=== PATIENT | female | born 1935 | race Caucasian/White ===

== ENCOUNTER → 2016-06-08 | Outpatient (CLI) | payer OTHER ==
[2016-06-08 12:17] LABS: BASO % 0.4 %; BASO ABS # 0.03 K/uL (0-0.2); COMPLETE YES; HEMATOCRIT 40.8 % (37-47); IG% 0.1 %; LYMPH % 30.2 %; LYMPH ABS # 2.13 K/uL (1.2-3.4); MEAN CELL VOLUME 92.7 fL (80-100); MEAN CORPUSCULAR HEMOGLOBIN 30.5 pg (25-34); MEAN CORPUSCULAR HGB CONC 32.8 g/dl (32-36); MEAN PLATELET VOLUME 10.8 fL (7.4-10.4); MONO % 9.6 %; NEUT % 55.7 %; PLATELET COUNT 200 K/uL (130-400); WHITE BLOOD COUNT 7.06 K/uL (4.8-10.8)
[2016-06-08 13:17] LABS: BLOOD UREA NITROGEN 18 mg/dl (7-18); BUN/CREATININE RATIO 18.8 (10-20); CARBON DIOXIDE 29 mmol/L (21-32); CHLORIDE 107 mmol/L (98-107); CREATININE 0.96 mg/dl (0.60-1.20); GLUCOSE 110 mg/dl (70-99); POTASSIUM 3.8 mmol/L (3.5-5.1); SODIUM 144 mmol/L (136-145)
[2016-06-08 13:38] LABS: ALB/GLOB RATIO 1.2 (0.9-2); ALKALINE PHOSPHATASE 76 U/L (45-117); ALT/SGPT 25 U/L (12-78); AST/SGOT 25 U/L (15-37)
[2016-06-08 13:55] LABS: CALCIUM 10.1 mg/dl (8.5-10.1)
== END ==
LOC: C.LABPVFM 10:15
PROVIDERS: ATTEND Family Medicine
DX: I10 Essential (primary) hypertension (principal); K51.90 Ulcerative colitis, unspecified, without complications

== ENCOUNTER → 2016-09-27 | Outpatient (CLI) | payer OTHER ==
--- NOTE | 2016-09-27 09:44 | DIAGNOSTIC IMAGING REPORT ---
RIGHT WRIST MIN 3 VIEWS ROUTINE CLINICAL HISTORY: Right wrist pain. Trauma. COMPARISON: None. DISCUSSION: The bones are mildly osteopenic. No acute fractures are visualized. There are no subluxations. There are mild degenerative changes. IMPRESSION: Osteopenia and mild degenerative change. No acute fractures. Electronically signed by: Jaden Loja M.D. 09/27/2016 9:42 AM Dictated Date/Time: 09/27/2016 9:41 AM
== END | disposition home or self-care (01) ==
LOC: C.RADPV 09:26
PROVIDERS: ATTEND Family Medicine
DX: M77.10 Lateral epicondylitis, unspecified elbow (principal); M77.9 Enthesopathy, unspecified; S63.509A Unspecified sprain of unspecified wrist, initial encounter; X58.XXXA Exposure to other specified factors, initial encounter; M85.88 Other specified disorders of bone density and structure, other site

== ENCOUNTER → 2017-01-31 | Outpatient (CLI) | payer OTHER ==
[2017-01-31 13:08] LABS: ALT/SGPT 23 U/L (12-78); BLOOD UREA NITROGEN 15 mg/dl (7-18); BUN/CREATININE RATIO 19.1 (10-20); CALCIUM 9.6 mg/dl (8.5-10.1); CARBON DIOXIDE 30 mmol/L (21-32); CHLORIDE 105 mmol/L (98-107); CREATININE 0.76 mg/dl (0.60-1.20); GLUCOSE 105 mg/dl (70-99); POTASSIUM 3.9 mmol/L (3.5-5.1); SODIUM 141 mmol/L (136-145)
[2017-01-31 13:11] LABS: ALB/GLOB RATIO 1.1 (0.9-2); ALKALINE PHOSPHATASE 84 U/L (45-117); AST/SGOT 24 U/L (15-37)
[2017-01-31 13:37] LABS: ESTIMATED AVERAGE GLUCOSE 120 mg/dl; HA1C FLAG Normal (Normal)
== END | disposition home or self-care (01) ==
LOC: C.LABPVFM 09:50
PROVIDERS: ATTEND Family Medicine
DX: K51.90 Ulcerative colitis, unspecified, without complications (principal)

== ENCOUNTER → 2017-02-05 | Outpatient (CLI) | payer OTHER ==
[2017-02-05 18:32] LABS: HEMATOCRIT 44.1 % (37-47); MEAN CELL VOLUME 93.2 fL (80-100); MEAN CORPUSCULAR HGB CONC 32.2 g/dl (32-36); MEAN PLATELET VOLUME 10.9 fL (7.4-10.4); PLATELET COUNT 219 K/uL (130-400); RED BLOOD COUNT 4.73 M/uL (4.2-5.4); WHITE BLOOD COUNT 9.43 K/uL (4.8-10.8)
== END | disposition home or self-care (01) ==
LOC: C.LABPVFM 10:13
PROVIDERS: ATTEND Internal Medicine Gastroenterology
DX: K51.90 Ulcerative colitis, unspecified, without complications (principal); R49.0 Dysphonia

== ENCOUNTER → 2017-10-12 | Outpatient (CLI) | payer OTHER | END | disposition home or self-care (01) | LOC: C.LABPVFM 15:38 | PROVIDERS: ATTEND Family Medicine | DX: R53.83 Other fatigue (principal); M25.531 Pain in right wrist; M25.532 Pain in left wrist ==

== ENCOUNTER 2023-07-04 15:26 | Inpatient (IN) ==
--- NOTE | 2023-07-04 16:35 | Emergency Department Note ---
Impression & Plan Bilateral edema of lower extremity, Fatigue, Atrial fibrillation with RVR, Elevated brain natriuretic peptide (BNP) level ED Provider Note ED Provider Note NAME: TAMIKA ROLON AGE:87 SEX: Female : 1935 ARRIVES VIA: Private vehicle INFORMANT: Patient ED PROVIDER(s): Angie Lobo DO CHIEF COMPLAINT: Lower extremity edema HPI: This is an 87-year-old female who presents emergency department due to concern for increased lower extremity edema. Patient states she just noticed it today. She states for several days she had had a small amount of edema in her feet and ankles and thought it was due to eating too much ham over the weekend. She states today she realized it was extending up above her ankles and to her lower legs. She denies any trauma or injury to the lower legs. She denies any recent change in activity. She denies any history of chronic lower extremity edema. Patient states she does have atrial fibrillation and does see Dr. Hawkins of cardiology. She states a new medication was recently added and she has had some increased fatigue since that was started. She denies any recent fevers, chills, or URI symptoms. She denies any change in her urine or difficulty urinating. Patient states she does have a history of ulcerative colitis and does have frequent bouts of diarrhea and lower abdominal cramping. She states she does intermittently notice blood with her bowel movements. PAST MEDICAL HISTORY:See Below PAST SURGICAL HISTORY:See Below FAMILY HISTORY:See Below SOCIAL HISTORY:See Below HOME MEDICATIONS:See Below ALLERGIES:See Below VITALS:See Below PHYSICAL EXAMINATION: GENERAL: alert, well appearing, well nourished, no distress, non-toxic EYE EXAM: normal conjunctiva, PERRL and EOM's grossly intact OROPHARYNX: no exudate, no erythema, lips, buccal mucosa, and tongue normal and mucous membranes are moist NECK: supple, no nuchal rigidity, no adenopathy, non-tender LUNGS: Clear to auscultation. Normal chest wall mechanics, no w/r/r HEART: no murmurs, S1 normal and S2 normal ABDOMEN: abdomen soft, non-tender, normo-active bowel sounds, no masses, no rebound or guarding. BACK: Back is symmetrical on inspection and there is no deformity, no midline tenderness, no CVA tenderness. SKIN: no rashes, petechiae, orbruising UPPER EXTREMITIES: upper extremities are grossly normal. FROM, nml pulses b/l. LOWER EXTREMITIES: 1-2+ b/l pitting edema worse on left than right, mild erythema noted to the distal left lower extremity anteriorly, FROM, nml pulses b/l. NEURO EXAM: Normal sensorium, cranial nerves II-XII grossly intact, normal speech, no facial droop,nogross weakness of arms, no gross weakness of legs. Gross sensation intact. No ataxia. Vital Signs: reviewed and remarkable Differential Diagnosis: pneumonia, bronchitis, COPD/Asthma exacerbation, pneumothorax, pulmonary embolism, congestive heart failure, acute coronary syndrome, as well as others were considered MEDICAL DECISION MAKING: This is an 87-year-old female who presents emerged from due to concern for increased lower extremity edema. Patient also reports recent increased fatigue and occasional dyspnea on exertion. Patient was afebrile and vital signs stable, no hypoxia noted. She was noted to have atrial fibrillation with RVR although does have a history of A-fib. She states she cannot tell when she has it though. Patient does see cardiology and is anticoagulated. Labs drawn and sent, IV established, EKG and chest ray performed bedside interpreted by me and patient monitored on telemetry. Patient noted to have mild pulmonary edema additionally. BNP added and was also found to be elevated. At this time I suspect her poorly controlled rate could be contributing to increased cardiac stress leading to evolving CHF. Patient started on diltiazem drip as she already takes diltiazem orally daily. Patient did have improved rate control. Patient given 1 dose of furosemide despite previously reported furosemide on allergy list. Patient cannot recall what her reaction was. Listed reaction on her system states headache. I feel this is more likely an adverse reaction. Case discussed with hospitalist team for additional evaluation and management. Consultation(s): 1809: Discussed with Dr. Ramirez, [place] hospitalist, for additional evaluation and mgmt. ER Treatment Provided: See below Diagnostics Interpreted By Me: -ECG: Atrial fibrillation at 122, normal axis, normal intervals, no acute ST/T wave change -Cardiac Monitoring: An order was placed for continuous cardiac monitoring. The monitor shows a rate of 122 with atrial fibrillation rhythm. -Laboratory studies: As stated above and show below. -Imaging studies: Chest x-ray: No mediastinal widening, no cardiomegaly, mild bilateral pulmonary edema, no pleural effusion, no focal consolidation Triage Nursing Note Reviewed Prior/Outside Records Reviewed -cardiology visit from March 2023 reviewed Critical Care: Critical care of 39 min performed to assess and manage high likelihood of life- threatening dysrhythmia, involving labs and imaging performed with assessment to evaluate dysrhythmia diagnosis with frequent reassessment. This time includes bedside time, treatment discussions with patient/family/consultants, documentation time and excludes procedure time. Past Med/Surg History Medical History History of trigger finger Trigger index finger of left hand Sinusitis, acute maxillary History of tinea corporis Eosinophilic lung History of Rosenthal's palsy Degenerative disc disease Osteoarthritis Stress incontinence Borderline diabetes Macular degeneration Restless leg syndrome Peripheral neuropathy Migraine Thrombosis Hyperlipidemia Ulcerative colitis Asthma Surgical History History of dilatation and curettage History of open reduction and internal fixation (ORIF) procedure History of colonoscopy History of tooth extraction History of tonsillectomy History of adenoidectomy Status post nasal endoscopy with nasal polypectomy History of left knee surgery History of knee replacement History of cochlear implant History of cataract surgery Family History Grandmother (Paternal) Family hx colonic polyps Stroke Aunt Stroke Mother Congestive heart failure Leukemia Daughter FH: malignant neoplasm of thyroid Denies family history of Ovarian cancer Prostate cancer Myocardial infarction Breast cancer Colorectal cancer Social History Smoking Status: Never smoker Second Hand Exposure: No; Do You Dip or Chew Tobacco: No; Hx Alcohol Use: No Hx Substance Use: No Preferred Language: Upper Sorbian Communication Ability: Effective Communication Ability Comment: [facility] Jboss Developer Required: No Beliefs That Will Affect Care: None marital status: Current Living Situation: Alone Current Living Situation Comment: daughter to help post op Feels Safe at Home: Yes Dental Care, Regularly: Yes Assistive Devices: Cane and Walker Allergies Allergies Allergy/AdvReac Type Severity Reaction Status Date / Time NSAIDS (Non-Steroidal Allergy Severe "TOLD NOT Verified 07/04/23 14:00 Anti-Inflamma TO TAKE" ? R/T ABNORMAL WBC IN 1990'S sulfasalazine Allergy Severe WBC Verified 07/04/23 14:00 [From Azulfidine] ABNORMALITY albuterol Allergy Intermediate DYSPNEA Verified 07/04/23 14:00 aspirin Allergy Intermediate "TOLD NOT Verified 07/04/23 14:00 TO TAKE" ? R/T ABNORMAL WBC IN bacitracin Allergy Intermediate RED AND Verified 07/04/23 14:00 [From Neosporin INFLAMMATION ([id number])] AT SITE ciclesonide [From Omnaris] Allergy Intermediate MUSCLE Verified 07/04/23 14:00 CRAMPS egg Allergy Intermediate HIVES IF Verified 07/04/23 14:00 EAT TOO MANY fish derived Allergy Intermediate SNEEZING, Verified 07/04/23 14:00 RUNNING NOSE, VOICE LOSS flunisolide [From Aerobid] Allergy Intermediate COUGH/SOB Verified 07/04/23 14:00 hydrochlorothiazide Allergy Intermediate MUSCLE Verified 07/04/23 14:00 [From Maxzide] CRAMPS Iodinated Contrast Media Allergy Intermediate Dizziness Verified 07/04/23 14:00 [Iodinated Contrast- Oral and IV Dye] iodine Allergy Intermediate Wheezing Verified 07/04/23 14:00 ipratropium Allergy Intermediate COUGH, Verified 07/04/23 14:00 "TIGHTNESS" mesalamine Allergy Intermediate HIVES Verified 07/04/23 14:00 neomycin Allergy Intermediate RED AND Verified 07/04/23 14:00 [From Neosporin INFLAMMATION ([id number])] AT SITE Penicillins Allergy Intermediate Hives Verified 07/04/23 14:00 pirbuterol Allergy Intermediate SOB Verified 07/04/23 14:00 [From Maxair Autohaler] polymyxin B Allergy Intermediate RED AND Verified 07/04/23 14:00 [From Neosporin INFLAMMATION ([id number])] AT SITE povidone-iodine Allergy Intermediate Wheezing Verified 07/04/23 14:00 [From Betadine] prednisone Allergy Intermediate MUSCLE Verified 07/04/23 14:00 CRAMPS senna Allergy Intermediate "X-PREP" Verified 07/04/23 14:00 WHEEZING, VOMITING triamcinolone [From Azmacort] Allergy Intermediate SOB Verified 07/04/23 14:00 triamterene [From Maxzide] Allergy Intermediate MUSCLE Verified 07/04/23 14:00 CRAMPS turkey Allergy Intermediate DYSPEPSIA Verified 07/04/23 14:00 zileuton [From Zyflo] Allergy Intermediate INCREASED Verified 07/04/23 14:00 PULSE codeine Allergy Mild RASH Verified 07/04/23 14:00 furosemide [From Lasix] Allergy Mild HEADACHE Verified 07/04/23 14:00 glucosamine Allergy Mild Rash Verified 07/04/23 14:00 hydrocodone Allergy Mild RASH Verified 07/04/23 14:00 oxtriphylline Allergy Mild SOB, Verified 07/04/23 14:00 VOMITING theophylline Allergy Mild SOB, Verified 07/04/23 14:00 VOMITING vitamin E (d-alpha Allergy Mild Rash Verified 07/04/23 14:00 tocopherol) Xanthines Allergy Mild SOB, Verified 07/04/23 14:00 Vomiting soap [From Betadine] Allergy Unknown Wheezing Verified 07/04/23 14:00 soybean AdvReac Intermediate "MOUTH Verified 07/04/23 14:00 ISSUES" loperamide AdvReac Mild Vomiting Verified 07/04/23 14:00 milk AdvReac Mild DIARRHEA,VO Verified 07/04/23 14:00 MITING perfume AdvReac Mild WHEEZY Verified 07/04/23 14:00 tomato AdvReac Mild DIARRHEA Verified 07/04/23 14:00 pseudoephedrine AdvReac Unknown TACHYCARDIA Verified 07/04/23 14:00 ,VOMITING salmeterol AdvReac Unknown DECREASED Verified 07/04/23 14:00 "LUNG POWER" zafirlukast AdvReac Unknown SLUGGISHNESS, Verified 07/04/23 14:00 EXTREME LOSS OF APPETITE salicylates AdvReac CAUSED Verified 07/04/23 14:00 POLYPS METALS Allergy Mild Rash Uncoded 07/04/23 14:00 BABY DAVE POWDER AdvReac Mild Rash Uncoded 07/04/23 14:00 Home Meds Home Medications Medication Instructions Recorded Confirmed balsalazide 750 mg capsule 2,250 mg PO TID 07/31/18 07/04/23 calcium carbonate 600 mg-vitamin 1 cap PO BID 07/31/18 07/04/23 D3 5 mcg (200 unit) capsule (Calcium 600 + D(3)) cetirizine 10 mg capsule (Zyrtec) 10 mg PO HS 07/31/18 07/04/23 chlorpheniramine maleate 4 mg 4 mg PO Q6H PRN Allergy Symptoms 07/31/18 07/04/23 tablet cholecalciferol (vitamin D3) 50 2,000 unit PO BID 07/31/18 07/04/23 mcg (2,000 unit) capsule (Vitamin D3) clindamycin HCl 300 mg capsule 600 mg PO UD PRN BEFORE DENTAL 07/31/18 07/04/23 VISITS flaxseed oil 1,000 mg capsule 100 mg PO BID 07/31/18 07/04/23 ketoconazole 2 % topical cream 1 applic topical DAILY PRN 07/31/18 07/04/23 NEEDED RING WORM lutein 20 mg capsule 20 mg PO QAM 07/31/18 07/04/23 [id number]-builus 1 tab PO QAM 07/31/18 07/04/23 tablet (Multivitamin 50 Plus tablet) potassium gluconate 595 mg (99 mg) 595 mg PO BID 07/31/18 07/04/23 tablet sodium chloride 0.65 % nasal spray 1 spray intranasal BID PRN 07/31/18 07/04/23 aerosol (Saline Nasal) Congestion triamcinolone acetonide 0.025 % 1 applic topical BID PRN Rash 07/31/18 07/04/23 topical cream vit C 250 mg-vit E 90 mg-zinc 40 1 tab PO BID 07/31/18 07/04/23 mg-copper 1 [id number] capsule (PreserVision AREDS-2) acetaminophen 325 mg tablet 325 mg PO QID PRN Pain 10/28/21 07/04/23 (Tylenol) magnesium oxide 400 mg PO DAILY PRN muscle cramps 10/28/21 07/04/23 prednisone 10 mg tablet 0 mg PO UD 07/04/23 07/04/23 Previous Rx's Medication Instructions Recorded menthol 4 % topical gel (Biofreeze 1 applic topical TID PRN pain or 03/24/20 (menthol)) itching #89 mL prednisone 20 mg tablet 40 mg (2 x 20 mg) PO .COMPLEX PRN 03/29/22 asthma #30 tabs chlorthalidone 25 mg tablet See Rx Instructions .Route 11/23/22 .COMPLEX #45 tabs apixaban 5 mg tablet (Eliquis) 5 mg PO BID #180 tabs 04/16/23 diltiazem HCl 180 mg 180 mg PO DAILY #90 caps 03/29/24 capsule,extended release 24 hr Results & Data (ED) Vital Signs Vital Signs - 24 hr 07/04/23 16:01 07/04/23 16:02 07/04/23 16:09 Pulse Rate 128 H 129 H Pulse Rate [Right Finger] Respiratory Rate 20 20 Blood Pressure 136/74 Blood Pressure [Right Arm] Blood Pressure Mean 94 Blood Pressure Mean [Right Arm] Pulse Oximetry 92 92 92 Oxygen Delivery Method Room Air Room Air Room Air Sepsis Recent Fever Within 48 Hours No Sepsis New/Unexplained Change in Mental Status No Sepsis Action Taken by Nursing No Action Required 07/04/23 18:04 Pulse Rate Pulse Rate [Right Finger] 114 H Respiratory Rate 20 Blood Pressure Blood Pressure [Right Arm] 126/88 Blood Pressure Mean Blood Pressure Mean [Right Arm] 100 Pulse Oximetry 90 Oxygen Delivery Method Room Air Sepsis Recent Fever Within 48 Hours Sepsis New/Unexplained Change in Mental Status Sepsis Action Taken by Nursing Laboratory Data 07/04/23 16:22 07/04/23 16:22 Lab Results 07/04/23 07/04/23 Range/Units 16:22 16:26 WBC 7.88 (4.8-10.8) K/ul RBC 4.68 (4.20-5.40) M/uL Hgb 13.4 (12.0-16.0) g/dl Hct 42.0 (37.0-47.0) % MCV 89.7 (80.0-100.0) fL MCH 28.6 (25.0-34.0) pg MCHC 31.9 L (32.0-36.0) g/dL RDW Std Deviation 45.7 (36.4-46.3) fL RDW Coeff of Paul 13.8 (11.5-14.5) % Plt Count 194 (130-400) K/uL MPV 10.0 (9.4-12.4) fL Immature Gran % (Auto) 0.6 % Neut % (Auto) 67.8 % Lymph % (Auto) 20.1 % Carlton % (Auto) 8.6 % Eos % (Auto) 2.5 % Baso % (Auto) 0.4 % Neut # (Auto) 5.34 (1.40-6.50) K/uL Lymph # (Auto) 1.58 (1.20-3.40) K/uL Carlton # (Auto) 0.68 H (0.11-0.59) K/uL Eos # (Auto) 0.20 (0.00-0.50) K/uL Baso # (Auto) 0.03 (0.00-0.20) K/uL Immature Gran # (Auto) 0.05 (0.01-0.20) K/uL PT 10.9 (9.0-12.0) Seconds INR 1.0 (0.9-1.1) APTT 25 (21-31) Seconds PTT Ratio 0.9 Sodium 141 (136-145) mmol/L Potassium 3.5 (3.5-5.1) mmol/L Chloride 104 (98-107) mmol/L Carbon Dioxide 29 (21-32) mmol/L Anion Gap 8 (3-11) BUN 9 (6-23) mg/dl Creatinine 0.83 (0.6-1.2) mg/dl Est Cr Clr Drug Dosing 58.2 ml/min Est GFR ( Amer) 73.0 ml/min Est GFR (Non-Af Amer) 63.0 ml/min BUN/Creatinine Ratio 10.8 (10-20) Glucose 117 H (70-99(Fasting)) mg/dl Calcium 9.6 (8.6-10.3) mg/dl Magnesium 1.9 (1.7-2.4) mg/dl Total Bilirubin 0.6 (0.2-1.0) mg/dl AST 29 (13-39) U/L ALT 19 (7-52) U/L Alkaline Phosphatase 70 (34-104) U/L Troponin I High Sens 8.1 (0-14) pg/ml B-Natriuretic Peptide 220 H (0-100) pg/ml Total Protein 7.1 (6.0-8.3) gm/dl Albumin 4.2 (3.4-5.0) gm/dl Globulin 2.9 (2.5-4.0) gm/dl Albumin/Globulin Ratio 1.4 (0.9-2) Urine Color Yellow Urine Appearance Clear (Clear) Urine pH 8.0 H (4.5-7.5) Ur Specific [place] 1.004 (1.000-1.030) Urine Protein Negative (Negative) Urine Glucose (UA) Negative (Negative) Urine Ketones Negative (Negative) Urine Blood Negative (Negative) Urine Nitrite Negative (Negative) Urine Bilirubin Negative (Negative) Urine Urobilinogen Negative (Negative) Ur Leukocyte Esterase 1+ H (Negative) Urine WBC (Auto) 0-5 (0-5) /hpf Urine RBC (Auto) 0-2 (0-2) /hpf U Hyaline Cast (Auto) 0-2 (0-2) /lpf U Epithel Cells (Auto) 0-2 (0-2) /hpf Urine Bacteria (Auto) None Seen (None Seen) Administered Medications Calcium/Vitamin D (Calcium 600mg + Vit D 400 Iu Tab) 1 tab PO BID [facility] Stop: 08/03/23 22:44 Last Admin: 07/05/23 00:26 Dose: 1 tab Documented By: ISAÍAS Cetirizine HCl (Cetirizine Hcl 10 Mg Tablet) 10 mg PO HS [facility] Stop: 08/03/23 22:44 Last Admin: 07/05/23 00:26 Dose: 10 mg Documented By: ISAÍAS Diltiazem HCl 125 mg/ Dextrose 125 mls @ 10 mls/hr IV .[id number] [facility]; Protocol Stop: 08/03/23 17:44 Last Titration: 07/04/23 19:42 Dose: 10 mg/hr, 10 mls/hr Documented By: VIDAL Co-signed By: ANTONIO Admin: 07/04/23 17:47 Dose: 5 mg/hr, 5 mls/hr Documented By: ANTONIO Co-signed By: VANDANA Multivitamins/Minerals (Cerovite Adv Formula Tab) 1 tab PO BID [facility] Stop: 08/03/23 22:44 Last Admin: 07/05/23 00:26 Dose: 1 tab Documented By: ISAÍAS Prednisone (Prednisone 20 Mg Tab) 40 mg PO DAILY [facility] Stop: 08/03/23 22:27 Last Admin: 07/05/23 00:25 Dose: 40 mg Documented By: ISAÍAS Vitamin D (Cholecalciferol 25 Mcg (1000 Units) Tab) 50 mcg PO BID [facility] Stop: 08/03/23 22:44 Last Admin: 07/05/23 00:26 Dose: 50 mcg Documented By: ISAÍAS Discontinued Medications Furosemide (Furosemide Inj 20 Mg/2 Ml Vial) 20 mg IV ONE ONE Stop: 07/04/23 18:13 Last Admin: 07/04/23 19:11 Dose: 20 mg Documented By: TJS Miscellaneous (Stat Iv Infusion Titration Per Protocol) 1 each N/A NOW STA Stop: 07/04/23 17:33 Last Admin: 07/04/23 17:48 Dose: Not Given Documented By: ANTONIO Imaging Data Radiologist's Impression: Chest X-Ray 07/04/23 16:01 PORTABLE SEMIERECT AP CHEST RADIOGRAPH CLINICAL HISTORY: Chest pain, nonspecific COMPARISON STUDY: Chest radiograph July 31, 2018. FINDINGS: There is no pneumothorax or pleural effusion. Apparent right infrahilar opacity is likely technical, related to lordotic positioning. There is mild enlargement of the cardiac silhouette. Pulmonary vascular congestion is noted without overt pulmonary edema. No definite consolidation to suggest pneumonia. IMPRESSION: 1. Apparent right infrahilar opacity. This is likely technical. A focus of pneumonia could appear similar although is considered less likely. 2. Mild cardiomegaly with pulmonary vascular congestion. ACT 112: Negative or not required by law. Electronically signed by: Tapan Bundy M.D. 07/04/2023 4:40 PM Discharge Plan Visit Data Chief Complaint: Shortness of Breath/Dyspnea Stated Complaint: SOB ED Provider: Angie Lobo Discharge Problem: Bilateral edema of lower extremity, Fatigue, Atrial fibrillation with RVR, Elevated brain natriuretic peptide (BNP) level Discharge Instructions Interventions: ED Discharge Assessment Last Done: 07/04/23 22:28
--- NOTE | 2023-07-04 16:41 | XRay Report ---
PORTABLE SEMIERECT AP CHEST RADIOGRAPH CLINICAL HISTORY: Chest pain, nonspecific COMPARISON STUDY: Chest radiograph July 31, 2018. FINDINGS: There is no pneumothorax or pleural effusion. Apparent right infrahilar opacity is likely t echnical, related to lordotic positioning. There is mild enlargement of the cardiac silhouette. Pulmo nary vascular congestion is noted without overt pulmonary edema. No definite consolidation to suggest pneumonia. IMPRESSION: 1. Apparent right infrahilar opacity. This is likely technical. A focus of pneumonia could appear sim ilar although is considered less likely. 2. Mild cardiomegaly with pulmonary vascular congestion. ACT 112: Negative or not required by law. Electronically signed by: Tapan Bundy M.D. 07/04/2023 4:40 PM
[2023-07-04 16:46] LABS: Basophils # (auto) 0.03 K/uL (0.00-0.20); Basophils % (auto) 0.4 %; Eosinophils % (auto) 2.5 %; Hemoglobin 13.4 g/dl (12.0-16.0); Immature Granulocytes # (auto) 0.05 K/uL (0.01-0.20); Immature Granulocytes % (auto) 0.6 %; Lymphocytes # (auto) 1.58 K/uL (1.20-3.40); Lymphocytes % (auto) 20.1 %; Mean Corpuscular Hemoglobin 28.6 pg (25.0-34.0); Mean Corpuscular Hgb Conc 31.9 g/dL (32.0-36.0); Mean Corpuscular Volume 89.7 fL (80.0-100.0); Monocytes # (auto) 0.68 K/uL (0.11-0.59); Monocytes % (auto) 8.6 %; Neutrophils # (auto) 5.34 K/uL (1.40-6.50); Neutrophils % (auto) 67.8 %; Platelet Count 194 K/uL (130-400); RDW Coefficient of Variation 13.8 % (11.5-14.5); RDW Standard Deviation 45.7 fL (36.4-46.3); Red Blood Count 4.68 M/uL (4.20-5.40); White Blood Count 7.88 K/ul (4.8-10.8)
[2023-07-04 16:58] LABS: Partial Thromboplastin Ratio 0.9; Partial Thromboplastin Time 25 Seconds (21-31); Prothrombin Time 10.9 Seconds (9.0-12.0)
[2023-07-04 17:03] LABS: Albumin Globulin Ratio 1.4 (0.9-2); Albumin Level 4.2 gm/dl (3.4-5.0); BUN Creatinine Ratio 10.8 (10-20); Bilirubin,Total 0.6 mg/dl (0.2-1.0); Calcium 9.6 mg/dl (8.6-10.3); Creatinine Clr Calc Pharmacy 58.2 ml/min; Globulin 2.9 gm/dl (2.5-4.0); Potassium 3.5 mmol/L (3.5-5.1); Total Protein 7.1 gm/dl (6.0-8.3)
[2023-07-04 17:09] LABS: Troponin I High Sensitivity 8.1 pg/ml (0-14)
[2023-07-04 17:27] LABS: Appearance Urine Clear (Clear); Bacteria Urine Automated None Seen (None Seen); Bilirubin Urine Negative (Negative); Blood Urine Negative (Negative); Cast Urine Automated 0-2 /lpf (0-2); Color Urine Yellow; Epithelial Cell Urine Auto 0-2 /hpf (0-2); Glucose Urine UA Negative (Negative); Ketones Urine Negative (Negative); Leukocyte Esterase Urine 1+ (Negative); Nitrite Urine Negative (Negative); Protein Urine Negative (Negative); RBC Urine Automated 0-2 /hpf (0-2); Specific Gravity Urine 1.004 (1.000-1.030); Urobilinogen Urine Negative (Negative); WBC Urine Automated 0-5 /hpf (0-5)
[2023-07-04] MEDS: dilTIAZem HCL 125 MG in DEXTROSE 5% 100 ML IV SCH (17:47)
[2023-07-04] MEDS: STAT IV Infusion **Titration per Protocol STA (17:48)
--- NOTE | 2023-07-04 18:23 | History & Physical Report ---
Date of Service July 04, 2023 Assessment & Plan (1) Atrial fibrillation with RVR: Plan: A-fib RVR with possible rate related myopathy Lasix x 1 given in the ER, will follow clinical response Patient is on diltiazem 180 mg daily at home, responded well to diltiazem gtt. in the ER. Will increase morning dose of diltiazem to 240 mg and down titrate Cardizem drip as able. Chest x-ray with congestion but no overt edema, small perihilar opacity although no other signs of pneumonia. Follow clinically, if she develops fever/chills/hypoxia/cough/leukocytosis then we will treat empirically for pneumonia Chlorthalidone continued Last echo with EF 60-65%, LVH patient is at increased risk of thrombosis due to underlying ulcerative colitis and chronic inflammatory state. SCDs. If she does well and has no further bleeding would resume her home Eliquis as soon as possible. Magnesium ordered, optimize to goal 2.0 (2) Ulcerative colitis: Plan: Ulcerative colitis Patient with a flare in the last week and intermittent small amounts of hematochezia. Hemoglobin is stable at 13.4 which she takes for A-fib Eliquis temporarily held for lower GI bleeding. Hemoglobin 13.4, this is trended. No large-volume bleeding Will start prednisone 40 mg daily and patient should continue follow-up with GI (3) HTN (hypertension): Plan: normotensive on admit Plan DVT prophylaxis: SCDs, resume Eliquis when able CODE STATUS: Full code Disposition: PCU Diet: Heart healthy History of Present Illness Primary Care Provider: Paola Israel MD Blanca Mathews is a 87-year-old female with past medical history of A-fib on diltiazem and anticoagulated with apixaban, ulcerative colitis without recent bleeding, and hypertension well-controlled at home on diltiazem who presents with A-fib with RVR/rates in the 120/130s. She was placed on a diltiazem drip in the ER and given elevated BNP and some pulmonary congestion was given Lasix 20 mg and IV.? Rate related changes with swelling, right infrahilar opacity is noted on x-ray from which pneumonia is not excluded however patient denies fever, chills, cough, sputum production. Rate is gradually improving on Cardizem. No chest pain, troponin is normal. No signs of ACS/ischemia. Blanca is seen at the bedside. She reports that her heart rate has been fast and she was sent to the ER for a fast heart rate and some foot swelling from her primary care doctor. She reports she does not have palpitations has had no chest pain or chest pressure. No difficulty breathing and denies orthopnea although notes some occasional chest heaviness this is not a pressure or pain and does not associate with diaphoresis/dyspnea. She is compliant with her anticoagulation. She notes that she does however have ulcerative colitis, and unfortunately has had a flare in the last week with increased loose bowel movements and some intermittent bright red blood in the toilet. No lightheadedness dizziness or syncope. She reports her assembly hand called in a prednisone course for her but she has not been able to pick this up. Denies abdominal pain. No other bleeding. DVT prophylaxis: SCDs Disposition: PCU CODE STATUS: Full code Diet: Heart healthy Allergies Allergy/AdvReac Type Severity Reaction Status Date / Time NSAIDS (Non-Steroidal Allergy Severe "TOLD NOT Verified 07/04/23 14:00 Anti-Inflamma TO TAKE" ? R/T ABNORMAL WBC IN sulfasalazine Allergy Severe WBC Verified 07/04/23 14:00 [From Azulfidine] ABNORMALITY albuterol Allergy Intermediate DYSPNEA Verified 07/04/23 14:00 aspirin Allergy Intermediate "TOLD NOT Verified 07/04/23 14:00 TO TAKE" ? R/T ABNORMAL WBC IN bacitracin Allergy Intermediate RED AND Verified 07/04/23 14:00 [From Neosporin INFLAMMATION ([id number])] AT SITE ciclesonide [From Omnaris] Allergy Intermediate MUSCLE Verified 07/04/23 14:00 CRAMPS egg Allergy Intermediate HIVES IF Verified 07/04/23 14:00 EAT TOO MANY fish derived Allergy Intermediate SNEEZING, Verified 07/04/23 14:00 RUNNING NOSE, VOICE LOSS flunisolide [From Aerobid] Allergy Intermediate COUGH/SOB Verified 07/04/23 14:00 hydrochlorothiazide Allergy Intermediate MUSCLE Verified 07/04/23 14:00 [From Maxzide] CRAMPS Iodinated Contrast Media Allergy Intermediate Dizziness Verified 07/04/23 14:00 [Iodinated Contrast- Oral and IV Dye] iodine Allergy Intermediate Wheezing Verified 07/04/23 14:00 ipratropium Allergy Intermediate COUGH, Verified 07/04/23 14:00 "TIGHTNESS" mesalamine Allergy Intermediate HIVES Verified 07/04/23 14:00 neomycin Allergy Intermediate RED AND Verified 07/04/23 14:00 [From Neosporin INFLAMMATION ([id number])] AT SITE Penicillins Allergy Intermediate Hives Verified 07/04/23 14:00 pirbuterol Allergy Intermediate SOB Verified 07/04/23 14:00 [From Maxair Autohaler] polymyxin B Allergy Intermediate RED AND Verified 07/04/23 14:00 [From Neosporin INFLAMMATION ([id number])] AT SITE povidone-iodine Allergy Intermediate Wheezing Verified 07/04/23 14:00 [From Betadine] prednisone Allergy Intermediate MUSCLE Verified 07/04/23 14:00 CRAMPS senna Allergy Intermediate "X-PREP" Verified 07/04/23 14:00 WHEEZING, VOMITING triamcinolone [From Azmacort] Allergy Intermediate SOB Verified 07/04/23 14:00 triamterene [From Maxzide] Allergy Intermediate MUSCLE Verified 07/04/23 14:00 CRAMPS turkey Allergy Intermediate DYSPEPSIA Verified 07/04/23 14:00 zileuton [From Zyflo] Allergy Intermediate INCREASED Verified 07/04/23 14:00 PULSE codeine Allergy Mild RASH Verified 07/04/23 14:00 furosemide [From Lasix] Allergy Mild HEADACHE Verified 07/04/23 14:00 glucosamine Allergy Mild Rash Verified 07/04/23 14:00 hydrocodone Allergy Mild RASH Verified 07/04/23 14:00 oxtriphylline Allergy Mild SOB, Verified 07/04/23 14:00 VOMITING theophylline Allergy Mild SOB, Verified 07/04/23 14:00 VOMITING vitamin E (d-alpha Allergy Mild Rash Verified 07/04/23 14:00 tocopherol) Xanthines Allergy Mild SOB, Verified 07/04/23 14:00 Vomiting soap [From Betadine] Allergy Unknown Wheezing Verified 07/04/23 14:00 soybean AdvReac Intermediate "MOUTH Verified 07/04/23 14:00 ISSUES" loperamide AdvReac Mild Vomiting Verified 07/04/23 14:00 milk AdvReac Mild DIARRHEA,VO Verified 07/04/23 14:00 MITING perfume AdvReac Mild WHEEZY Verified 07/04/23 14:00 tomato AdvReac Mild DIARRHEA Verified 07/04/23 14:00 pseudoephedrine AdvReac Unknown TACHYCARDIA Verified 07/04/23 14:00 ,VOMITING salmeterol AdvReac Unknown DECREASED Verified 07/04/23 14:00 "LUNG POWER" zafirlukast AdvReac Unknown SLUGGISHNESS, Verified 07/04/23 14:00 EXTREME LOSS OF APPETITE salicylates AdvReac CAUSED Verified 07/04/23 14:00 POLYPS METALS Allergy Mild Rash Uncoded 07/04/23 14:00 BABY DAVE POWDER AdvReac Mild Rash Uncoded 07/04/23 14:00 Home Medications Medication Instructions Recorded Confirmed Type balsalazide 750 mg capsule 2,250 mg PO TID 07/31/18 07/04/23 History calcium carbonate 600 mg-vitamin 1 cap PO BID 07/31/18 07/04/23 History D3 5 mcg (200 unit) capsule (Calcium 600 + D(3)) cetirizine 10 mg capsule (Zyrtec) 10 mg PO HS 07/31/18 07/04/23 History chlorpheniramine maleate 4 mg 4 mg PO Q6H PRN Allergy Symptoms 07/31/18 07/04/23 History tablet cholecalciferol (vitamin D3) 50 2,000 unit PO BID 07/31/18 07/04/23 History mcg (2,000 unit) capsule (Vitamin D3) clindamycin HCl 300 mg capsule 600 mg PO UD PRN BEFORE DENTAL 07/31/18 07/04/23 History VISITS flaxseed oil 1,000 mg capsule 100 mg PO BID 07/31/18 07/04/23 History ketoconazole 2 % topical cream 1 applic topical DAILY PRN 07/31/18 07/04/23 History NEEDED RING WORM lutein 20 mg capsule 20 mg PO QAM 07/31/18 07/04/23 History [id number]-[id number] 1 tab PO QAM 07/31/18 07/04/23 History tablet (Multivitamin 50 Plus tablet) potassium gluconate 595 mg (99 mg) 595 mg PO BID 07/31/18 07/04/23 History tablet sodium chloride 0.65 % nasal spray 1 spray intranasal BID PRN 07/31/18 07/04/23 History aerosol (Saline Nasal) Congestion triamcinolone acetonide 0.025 % 1 applic topical BID PRN Rash 07/31/18 07/04/23 History topical cream vit C 250 mg-vit E 90 mg-zinc 40 1 tab PO BID 07/31/18 07/04/23 History mg-copper 1 [id number] capsule (PreserVision AREDS-2) menthol 4 % topical gel (Biofreeze 1 applic topical TID PRN pain or 03/24/20 07/04/23 Rx (menthol)) itching #89 mL acetaminophen 325 mg tablet 325 mg PO QID PRN Pain 10/28/21 07/04/23 History (Tylenol) magnesium oxide 400 mg PO DAILY PRN muscle cramps 10/28/21 07/04/23 History prednisone 20 mg tablet 40 mg (2 x 20 mg) PO .COMPLEX PRN 03/29/22 07/04/23 Rx asthma #30 tabs chlorthalidone 25 mg tablet See Rx Instructions .Route 11/23/22 07/04/23 Rx .COMPLEX #45 tabs apixaban 5 mg tablet (Eliquis) 5 mg PO BID #180 tabs 04/16/23 07/04/23 Rx diltiazem HCl 180 mg 180 mg PO DAILY #90 caps 05/25/23 07/04/23 Rx capsule,extended release 24 hr prednisone 10 mg tablet 0 mg PO UD 07/04/23 07/04/23 History Past Med/Surg History Medical History History of trigger finger Trigger index finger of left hand Sinusitis, acute maxillary History of tinea corporis Eosinophilic lung History of Rosenthal's palsy Degenerative disc disease Osteoarthritis Stress incontinence Borderline diabetes Macular degeneration Restless leg syndrome Peripheral neuropathy Migraine Thrombosis Hyperlipidemia Ulcerative colitis Asthma Surgical History History of dilatation and curettage History of open reduction and internal fixation (ORIF) procedure History of colonoscopy History of tooth extraction History of tonsillectomy History of adenoidectomy Status post nasal endoscopy with nasal polypectomy History of left knee surgery History of knee replacement History of cochlear implant History of cataract surgery Family History Grandmother (Paternal) Family hx colonic polyps Stroke Aunt Stroke Mother Congestive heart failure Leukemia Daughter FH: malignant neoplasm of thyroid Denies family history of Ovarian cancer Prostate cancer Myocardial infarction Breast cancer Colorectal cancer Social History Smoking Status: Never smoker Second Hand Exposure: No; Do You Dip or Chew Tobacco: No; Hx Alcohol Use: No Hx Substance Use: No Preferred Language: Pashto Communication Ability: Effective Communication Ability Comment: [facility] Online Marketing Manager Required: No Beliefs That Will Affect Care: None marital status: Current Living Situation: Alone Current Living Situation Comment: daughter to help post op Feels Safe at Home: Yes Dental Care, Regularly: Yes Assistive Devices: Cane and Walker Physical Exam Physical Exam: General: A&Ox3. NAD. Cooperative. HEENT: Atraumatic, normocephalic. Pulm: CTAB A&P. -wheezes, -rales, -rhonchi. Symmetrical chest rise. No increased work of breathing. No respiratory distress. Cardiac: irir, +SM. Radial pulses intact and symmetrical. Abdominal: Nontender, nondistended, soft. BS present. Ext: +LE pitting edema bilat 2+, mild bilat symmetrical erythema. Results & Data Results & Data Vital Signs (Past 12 Hours) Vital Signs Pulse Pulse Resp BP BP Pulse Ox O2 Del Method 07/04/23 18:04 114 H 20 126/88 90 Room Air 07/04/23 16:09 92 Room Air 07/04/23 16:02 129 H 20 136/74 92 Room Air 07/04/23 16:01 128 H 20 92 Room Air PG Care Time/CCT Total # of Minutes Spent Total Time Spent with Patient: Total time spent is greater than 50% in coordination of care (as documented) at patient's floor/unit and/or counseling patient: Coding Level of Care Code 09791 INT INP/OBS CARE 3MIN Diagnoses Atrial fibrillation with RVR I48.91 Ulcerative colitis with complication, unspecified location K51.919 Ulcerative colitis location: unspecified ulcerative colitis location Digestive disease complication type: unspecified complication Primary hypertension I10 Hypertension type: primary hypertension (2) Ulcerative colitis Ulcerative colitis location: unspecified ulcerative colitis location Digestive disease complication type: unspecified complication Qualified Code(s): K51.919 - Ulcerative colitis, unspecified with unspecified complications (3) HTN (hypertension) Hypertension type: primary hypertension Qualified Code(s): I10 - Essential (primary) hypertension
[2023-07-04] MEDS: FUROSEMIDE INJ 20 MG/2 ML VIAL IV ONE (19:11)
[2023-07-04 19:12] LABS: Magnesium 1.9 mg/dl (1.7-2.4)
[2023-07-04] MEDS ORDERED: POLYETHYLENE (MIRALAX) 17 GM PACK PO PRN (22:28)
[2023-07-04] MEDS ORDERED: TRIAMCINOLONE ACET 0.025% CR 15 GM TUBE TOP PRN (22:28)
[2023-07-04] MEDS ORDERED: NON-FORMULARY MEDICATION (Flaxseed Oil 1,000 mg Capsule) PO SCH (22:28)
[2023-07-04] MEDS ORDERED: ACETAMINOPHEN 325 MG TAB PO PRN (22:28)
[2023-07-04] MEDS ORDERED: MAGNESIUM OXIDE 400 MG TAB PO PRN (22:44)
[2023-07-05] MEDS: predniSONE 20 MG TAB PO SCH (00:25)
[2023-07-05] MEDS: CHOLECALCIFEROL 25 MCG (1000 UNITS) TAB PO SCH (00:26)
[2023-07-05] MEDS: CALCIUM 600MG + VIT D 400 IU TAB PO SCH (00:26)
[2023-07-05] MEDS: CETIRIZINE HCL 10 MG TABLET PO SCH (00:26)
[2023-07-05] MEDS: CEROVITE ADV FORMULA TAB PO SCH (00:26)
[2023-07-05 04:40] LABS: Basophils # (auto) 0.03 K/uL (0.00-0.20); Basophils % (auto) 0.4 %; Eosinophils # (auto) 0.05 K/uL (0.00-0.50); Eosinophils % (auto) 0.6 %; Hematocrit (blood only) 40.9 % (37.0-47.0); Hemoglobin 13.1 g/dl (12.0-16.0); Immature Granulocytes # (auto) 0.04 K/uL (0.01-0.20); Immature Granulocytes % (auto) 0.5 %; Lymphocytes # (auto) 1.09 K/uL (1.20-3.40); Lymphocytes % (auto) 13.7 %; Mean Corpuscular Hemoglobin 28.2 pg (25.0-34.0); Mean Corpuscular Volume 88.1 fL (80.0-100.0); Monocytes # (auto) 0.19 K/uL (0.11-0.59); Monocytes % (auto) 2.4 %; Neutrophils # (auto) 6.53 K/uL (1.40-6.50); Neutrophils % (auto) 82.4 %; Platelet Count 179 K/uL (130-400); RDW Coefficient of Variation 13.8 % (11.5-14.5); RDW Standard Deviation 44.1 fL (36.4-46.3); Red Blood Count 4.64 M/uL (4.20-5.40); White Blood Count 7.93 K/ul (4.8-10.8)
[2023-07-05 05:05] LABS: Calcium 9.5 mg/dl (8.6-10.3); Creatinine Clr Calc Pharmacy 60.4 ml/min; Est GFR (African American) 76.3 ml/min; Est GFR (Non-African American) 65.8 ml/min; Magnesium 1.8 mg/dl (1.7-2.4); Potassium 3.8 mmol/L (3.5-5.1)
[2023-07-05] MEDS ORDERED: NON-FORMULARY MEDICATION (Lutein 20 mg Capsule) PO SCH (09:00)
[2023-07-05] MEDS: CHLORTHALIDONE 25 MG TAB PO SCH (09:35)
[2023-07-05] MEDS: dilTIAZem HCL 180 MG CAPCR PO SCH (09:36)
[2023-07-05] MEDS: POTASSIUM CHLORIDE CRTAB 20 MEQ TABCR PO STA (11:13)
[2023-07-05] MEDS: MAGNESIUM SULFATE / D5W 1 GM/100 ML BAG IV ONE (11:14)
[2023-07-05] MEDS: APIXABAN 5 MG TABLET PO SCH (11:14)
[2023-07-05] MEDS: dilTIAZem HCL 30 MG TAB PO ONE ×2 (12:19→20:09)
--- NOTE | 2023-07-05 19:51 | Hospitalist Progress Note ---
Date of Service July 05, 2023 Assessment & Plan (1) Atrial fibrillation with RVR: Plan: P/w HAZEL with rates in 120s. Pt is unaware of her afib but developed LE edema, elevated BNP, and fatigue recently. No angina She was recently started on diltiazem 180 mg daily by Cardiology the end of 04/2023 Placed on diltiazem gtt in the ER Add diltiazem 30mg po q6h x 2 doses today and then increase daily dose to 240mg qAM for tomorrow and Dc diltiazem gtt Monitor on tele Keep lytes replete-give K+ and IV magnesium today Resume home Eliquis as hgb stable and no further GI bleeding Cardiology is considering a cardioversion as an outpt (2) (HFpEF) heart failure with preserved ejection fraction: Plan: Acute on chronic HFpEF--P/w worsening fatigue and LE edema over the last 1-2 weeks. BNP elevated, CXR with pulm vascular congestion She does admit to indiscretion with eating a lot of ham prior to edema worsening Last echo with EF 60-65%, LVH in 03/2023 Her rapid Afib is also playing a role in her CHF Feeling much improved already after 1 dose of IV lasix in ER--> but remains hypervolemic Chlorthalidone will be discontinued in favor of po Bumex (had previous headaches with po lasix) Give Bumex 0.5mg IV x 1 this evening and then start Bumex 1mg po qAM tomorrow CXR with small perihilar opacity although no other signs of pneumonia. Follow clinically, if she develops fever/chills/hypoxia/cough/leukocytosis then we will treat empirically for pneumonia-follow CXR to resolution FOllow BMP, mag and replace lytes as needed Daily weights, strict I/Os, low salt diet (3) Cellulitis of leg, left: Plan: left leg with erythema, tenderness, but no fevers/chills or leukocytosis no erythema of right leg, suspect cellulitis start IV Daptomycin given allergies to multiple medications monitor for improvement (4) Ulcerative colitis: Plan: Patient with a flare in the last week with loose stools and intermittent small amounts of hematochezia. Hemoglobin is stable at 13.1 Eliquis resumed as bleeding has been minor and hgb unchanged from previous COntinue prednisone 40 mg daily and patient should continue follow-up with GI Continue home balsalazide (5) HTN (hypertension): Plan: BPs controlled continue increased dose of diltiazem continue diuresis with bumex Stop home chlorthalidone in favor of loop diuretic Plan DVT prophylaxis: SCDs, Eliquis CODE STATUS: Full code Disposition: continued stay on PCU, but possible dc to home tomorrow Admission and Anticipated Discharge Date Admission Date: July 04, 2023 Subjective Pt reports she is already feeling so much better. Her left leg was very painful yesterday and it's starting to feel better. She is no longer having any fatigue like before. SHe urinated quite a bit with the lasix last evening and her urine output did slow down so far today. The swelling is improving but is certainly not back to normal yet. Tele with Afib, rates 100s at rest Physical Exam Constitutional: WD/WN, vitals as above Respiratory: normal respiratory effort, lungs clear to auscultation Cardiovascular: Rate/Rhythm: + tachycardic and + irregularly irregular Heart Sounds: no murmur Extremities: + edema (2+ pitting edema in legs to knees bilat) Skin: left leg and foot with erythema circumferential, no wounds, +mild TTP Psychiatric: A+Ox3, euthymic affect Results & Data Results & Data Vital Signs (Past 12 Hours) Vital Signs Temp Pulse Pulse Resp BP BP Pulse Ox 07/05/23 19:40 95 H 20 128/78 95 07/05/23 16:43 36.6 C 89 149/82 H 94 07/05/23 14:00 95 H 27 H 93 07/05/23 13:00 94 H 20 94 07/05/23 12:18 133/81 07/05/23 12:18 98 H 24 91 07/05/23 12:00 84 18 95 07/05/23 11:00 95 H 24 95 07/05/23 10:24 07/05/23 10:16 103 H 18 154/94 H 95 07/05/23 10:00 101 H 20 07/05/23 09:30 94 H 20 07/05/23 09:00 92 H 17 89 L 07/05/23 08:30 93 H 17 93 07/05/23 08:00 84 21 90 O2 Del Method 07/05/23 19:40 Room Air 07/05/23 16:43 Room Air 07/05/23 14:00 07/05/23 13:00 07/05/23 12:18 07/05/23 12:18 07/05/23 12:00 07/05/23 11:00 07/05/23 10:24 Room Air 07/05/23 10:16 Room Air 07/05/23 10:00 07/05/23 09:30 07/05/23 09:00 Room Air 07/05/23 08:30 Room Air 07/05/23 08:00 Room Air Laboratory Results CBC, BMP, magnesium reviewed PG Care Time/CCT Total # of Minutes Spent Total Time Spent with Patient: Total time spent is greater than 50% in coordination of care (as documented) at patient's floor/unit and/or counseling patient: Coding Level of Care Code 43665 SUB INP/OBS CARE 3/50MIN Diagnoses Atrial fibrillation with RVR I48.91 (HFpEF) heart failure with preserved ejection fraction I50.30 Cellulitis of leg, left L03.116 Ulcerative colitis with complication, unspecified location K51.919 Digestive disease complication type: unspecified complication Ulcerative colitis location: unspecified ulcerative colitis location Primary hypertension I10 Hypertension type: primary hypertension (4) Ulcerative colitis Digestive disease complication type: unspecified complication Ulcerative colitis location: unspecified ulcerative colitis location Qualified Code(s): K51.919 - Ulcerative colitis, unspecified with unspecified complications (5) HTN (hypertension) Hypertension type: primary hypertension Qualified Code(s): I10 - Essential (primary) hypertension
[2023-07-05] MEDS: BUMETANIDE 0.5 MG in SYRINGE 0 ML IV ONE (20:00)
[2023-07-05] MEDS: DAPTOmycin 300 MG in SYRINGE 0 ML IV SCH (20:09)
[2023-07-05] MEDS: BALSALAZIDE DISODIUM 750 MG PO SCH (20:10)
[2023-07-06 06:14] LABS: Basophils # (auto) 0.02 K/uL (0.00-0.20); Basophils % (auto) 0.2 %; Eosinophils # (auto) 0.09 K/uL (0.00-0.50); Eosinophils % (auto) 0.9 %; Hematocrit (blood only) 38.7 % (37.0-47.0); Hemoglobin 12.8 g/dl (12.0-16.0); Immature Granulocytes # (auto) 0.05 K/uL (0.01-0.20); Immature Granulocytes % (auto) 0.5 %; Lymphocytes % (auto) 23.2 %; Mean Corpuscular Hemoglobin 28.8 pg (25.0-34.0); Mean Corpuscular Hgb Conc 33.1 g/dL (32.0-36.0); Mean Corpuscular Volume 87.2 fL (80.0-100.0); Monocytes % (auto) 8.1 %; Neutrophils # (auto) 6.64 K/uL (1.40-6.50); Neutrophils % (auto) 67.1 %; Platelet Count 193 K/uL (130-400); RDW Coefficient of Variation 13.8 % (11.5-14.5); Red Blood Count 4.44 M/uL (4.20-5.40)
[2023-07-06 06:27] LABS: Calcium 9.9 mg/dl (8.6-10.3); Creatinine Clr Calc Pharmacy 54.5 ml/min; Est GFR (Non-African American) 58.7 ml/min; Potassium 3.6 mmol/L (3.5-5.1)
[2023-07-06] MEDS: BUMETANIDE 1 MG TAB PO SCH ×2 (07:53→16:14)
[2023-07-06] MEDS: POTASSIUM CHLORIDE CRTAB 20 MEQ TABCR PO STA (07:53)
[2023-07-06] MEDS: dilTIAZem HCL 240 MG CAPCR PO SCH (08:32)
--- NOTE | 2023-07-06 12:14 | Hospitalist Progress Note ---
Date of Service July 06, 2023 Assessment & Plan (1) Atrial fibrillation with RVR: Plan: P/w HAZEL with rates in 120s at rest on admission. Pt is unaware of her afib but developed LE edema, elevated BNP, and fatigue recently. No angina She was recently started on diltiazem 180 mg daily by Cardiology the end of 04/2023 Placed on diltiazem gtt in the ER, but since started on increased dose of diltiazem po to 240mg and weaned off gtt rates better at rest, still up to 120s with exertion--continue to monitor and adjust diltiazem as needed Continue to monitor on tele Keep lytes replete-give KCl 40 meq po x 1 today Continue Eliquis -no further GI bleeding (minor bleeding but stable hgb prior to admission) Cardiology is considering a cardioversion as an outpt -f/u outpt (2) (HFpEF) heart failure with preserved ejection fraction: Plan: Acute on chronic HFpEF--P/w worsening fatigue and 3+ pitting LE edema over the last 1-2 weeks. BNP elevated, CXR with pulm vascular congestion She does admit to indiscretion with eating a lot of ham prior to edema worsening Last echo with EF 60-65%, LVH in 03/2023 Her rapid Afib is also playing a role in her CHF [place] much improved already after 1 dose of IV lasix in ER--> but remained hypervolemic Chlorthalidone discontinued in favor of po Bumex (had previous headaches with po lasix) Gave Bumex 0.5mg IV x 1 on 07/04 and then started Bumex 1mg po qAM Improving slowly but remains hypervolemic--> increase Bumex to 1mg po bid--> she is starting to get a mild headache similar to previous reaction to lasix- continue to monitor CXR with small perihilar opacity although no other signs of pneumonia. Follow clinically, if she develops fever/chills/hypoxia/cough/leukocytosis then we will treat empirically for pneumonia-follow CXR to resolution Follow BMP, mag and replace lytes as needed Daily weights, strict I/Os, low salt diet (3) Cellulitis of leg, left: Plan: left leg with erythema, tenderness, but no fevers/chills or leukocytosis started on Daptomycin (given multiple allergies) and already with significant improvement-no further tenderness, erythema almost gone Will dc IV Daptomycin as it caused severe burning in her IV---> she has severe allergy to PCN and has seen Mattress Inspector for testing for this. Hesitate to give cephalosporin. She reports multiple GI sensitivities to other medications including clindamycin Will start doxycycline 100mg po bid and continue for 6 days through 07/11/23 Continue to monitor for improvement Advised better foot care at home given macerated skin between toes-she cannot physically reach her feet to wash/dry them and lives alone at home (4) Ulcerative colitis: Plan: Patient with a flare in the last week with loose stools and intermittent small amounts of hematochezia. Hemoglobin is stable at 12.8, no bleeding here Continue Eliquis and monitor for bleeding Continue prednisone 40 mg daily and patient should continue follow-up with GI--> I contacted her GI office and all providers are out of the office today. Need to find out what the plan for her prednisone taper is Continue home balsalazide (5) HTN (hypertension): Plan: BPs controlled continue increased dose of diltiazem continue diuresis with bumex Stopped home chlorthalidone in favor of loop diuretic Plan DVT prophylaxis: SCDs, Eliquis CODE STATUS: Full code Disposition: continued stay on PCU, but possible dc to home tomorrow Admission and Anticipated Discharge Date Admission Date: July 04, 2023 Subjective Pt feeling very tired again because she did not get much sleep. SHe is urinating quite a bit and feel her leg swelling is down quite a bit. Pain in left leg is also much improved. Tele with Afib, rates 60-90s at rest, jumps to 120s with exertion. Physical Exam Constitutional: WD/WN, vitals as above Respiratory: normal respiratory effort, lungs clear to auscultation Cardiovascular: Rate/Rhythm: + irregularly irregular Heart Sounds: no murmur Extremities: + edema (2+ pitting edema in legs to knees bilat, improved from previous) Skin: left leg very minimal residual erythema in left foot and distal leg,no tenderness macerated skin between 4th and 5th toes bilat Psychiatric: A+Ox3, euthymic affect Results & Data Results & Data Vital Signs (Past 12 Hours) Vital Signs Temp Pulse Pulse Resp BP BP Pulse Ox 07/06/23 11:11 118/82 07/06/23 11:07 36.3 C L 07/06/23 10:46 109 H 23 160/99 H 90 07/06/23 08:00 84 07/06/23 06:00 36.2 C L 90 21 134/85 95 07/06/23 03:04 36.6 C 84 18 127/82 95 O2 Del Method 07/06/23 11:11 07/06/23 11:07 07/06/23 10:46 Room Air 07/06/23 08:00 07/06/23 06:00 Room Air 07/06/23 03:04 Room Air Laboratory Results CBC, BMP, magnesium reviewed PG Care Time/CCT Total # of Minutes Spent Total Time Spent with Patient: Total time spent is greater than 50% in coordination of care (as documented) at patient's floor/unit and/or counseling patient: Coding Level of Care Code 35742 SUB INP/OBS CARE 2/35MIN Diagnoses Atrial fibrillation with RVR I48.91 (HFpEF) heart failure with preserved ejection fraction I50.30 Cellulitis of leg, left L03.116 Ulcerative colitis with complication, unspecified location K51.919 Ulcerative colitis location: unspecified ulcerative colitis location Digestive disease complication type: unspecified complication Primary hypertension I10 Hypertension type: primary hypertension (4) Ulcerative colitis Ulcerative colitis location: unspecified ulcerative colitis location Digestive disease complication type: unspecified complication Qualified Code(s): K51.919 - Ulcerative colitis, unspecified with unspecified complications (5) HTN (hypertension) Hypertension type: primary hypertension Qualified Code(s): I10 - Essential (primary) hypertension
[2023-07-06] MEDS ORDERED: MELATONIN 3 MG TAB PO PRN (12:29)
[2023-07-06] MEDS: DOXYCYCLINE HYCLATE 100 MG CAP PO SCH (20:21)
--- NOTE | 2023-07-07 05:42 | Electrocardiogram Report ---
Test Reason : Blood Pressure : / mmHG Vent. Rate : 122 BPM Atrial Rate : 000 BPM P-R Int : 000 ms QRS Dur : 076 ms QT Int : 332 ms P-R-T Axes : 000 -12 053 degrees QTc Int : 473 ms Atrial fibrillation with rapid ventricular response Low voltage QRS Septal infarct , age undetermined Abnormal ECG When compared with ECG of 31-JUL-2018 14:57, Atrial fibrillation has replaced Sinus rhythm Vent. rate has increased BY 53 BPM Septal infarct is now Present Confirmed by Gregor Mota ([id number]) on 07/07/2023 5:42:28 AM Referred By: Paola Israel Confirmed By:Gregor Mota
[2023-07-07 07:30] LABS: Basophils # (auto) 0.04 K/uL (0.00-0.20); Basophils % (auto) 0.4 %; Eosinophils # (auto) 0.14 K/uL (0.00-0.50); Eosinophils % (auto) 1.5 %; Hematocrit (blood only) 39.1 % (37.0-47.0); Hemoglobin 12.8 g/dl (12.0-16.0); Immature Granulocytes # (auto) 0.04 K/uL (0.01-0.20); Immature Granulocytes % (auto) 0.4 %; Lymphocytes # (auto) 3.07 K/uL (1.20-3.40); Lymphocytes % (auto) 33.1 %; Mean Corpuscular Hemoglobin 28.7 pg (25.0-34.0); Mean Corpuscular Hgb Conc 32.7 g/dL (32.0-36.0); Mean Corpuscular Volume 87.7 fL (80.0-100.0); Mean Platelet Volume 10.2 fL (9.4-12.4); Monocytes # (auto) 0.73 K/uL (0.11-0.59); Monocytes % (auto) 7.9 %; Neutrophils # (auto) 5.25 K/uL (1.40-6.50); Neutrophils % (auto) 56.7 %; Platelet Count 194 K/uL (130-400); RDW Coefficient of Variation 13.9 % (11.5-14.5); RDW Standard Deviation 44.9 fL (36.4-46.3); Red Blood Count 4.46 M/uL (4.20-5.40); White Blood Count 9.27 K/ul (4.8-10.8)
[2023-07-07 07:50] LABS: BUN Creatinine Ratio 21.7 (10-20); Calcium 9.8 mg/dl (8.6-10.3); Creatinine Clr Calc Pharmacy 51.9 ml/min; Est GFR (African American) 64.4 ml/min; Est GFR (Non-African American) 55.6 ml/min; Magnesium 1.9 mg/dl (1.7-2.4); Potassium 3.8 mmol/L (3.5-5.1)
[2023-07-07] MEDS: predniSONE 10 MG TABLET PO SCH (08:14)
--- NOTE | 2023-07-07 14:13 | Hospitalist Progress Note ---
Date of Service July 07, 2023 Assessment & Plan (1) Atrial fibrillation with RVR: Plan: P/w HAZEL with rates in 120s at rest on admission. Pt is unaware of her afib but developed LE edema, elevated BNP, and fatigue recently. No angina She was recently started on diltiazem 180 mg daily by Cardiology the end of 04/2023 Placed on diltiazem gtt in the ER, but since started on increased dose of diltiazem po to 240mg and weaned off gtt Continue Eliquis -no further GI bleeding (minor bleeding but stable hgb prior to admission) Cardiology is considering a cardioversion as an outpt -f/u outpt (2) (HFpEF) heart failure with preserved ejection fraction: Plan: Acute on chronic HFpEF--P/w worsening fatigue and 3+ pitting LE edema over the last 1-2 weeks. BNP elevated, CXR with pulm vascular congestion She does admit to indiscretion with eating a lot of ham prior to edema worsening Last echo with EF 60-65%, LVH in 03/2023 Her rapid Afib is also playing a role in her CHF [place] much improved already after 1 dose of IV lasix in ER--> but remained hypervolemic Chlorthalidone discontinued in favor of po Bumex (had previous headaches with po lasix) Gave Bumex 0.5mg IV x 1 on 07/04 and then started Bumex 1mg po qAM Improving slowly but remains hypervolemic--> increased Bumex to 1mg po bid--> she is starting to get a mild headache similar to previous reaction to lasix- continue to monitor CXR with small perihilar opacity although no other signs of pneumonia. Follow clinically, if she develops fever/chills/hypoxia/cough/leukocytosis then we will treat empirically for pneumonia-follow CXR to resolution Follow BMP, mag and replace lytes as needed Daily weights, strict I/Os, low salt diet (3) Cellulitis of leg, left: Plan: left leg with erythema, tenderness, but no fevers/chills or leukocytosis started on Daptomycin (given multiple allergies) and already with significant improvement-no further tenderness, erythema almost gone Daptomycin d/c'd as it caused severe burning in her IV---> she has severe allergy to PCN and has seen Valuation Manager for testing for this. Hesitate to give cephalosporin. She reports multiple GI sensitivities to other medications including clindamycin Started doxycycline 100mg po bid and will continue for 6 days through 07/11/23 Advised better foot care at home given macerated skin between toes-she cannot physically reach her feet to wash/dry them and lives alone at home (4) Ulcerative colitis: Plan: Patient with a flare in the last week with loose stools and intermittent small amounts of hematochezia. Hemoglobin is stable at 12.8, no bleeding here Continue Eliquis and monitor for bleeding Continue prednisone 40 mg daily and patient should continue follow-up with GI-->prednisone taper had been prescribed to her - called pharmacy and still there for her: to start on discharge prednisone 30mg daily x 2 weeks, then 20mg daily x 2 weeks, then 10mg daily x 2 weeks, then 5mg daily x 2 weeks, then STOP. She has a GI f/u appt on 08/20/23 Continue home balsalazide (5) HTN (hypertension): Plan: BPs controlled continue increased dose of diltiazem continue diuresis with bumex Stopped home chlorthalidone in favor of loop diuretic Plan DVT prophylaxis: SCDs, Liquis CODE STATUS: Full code Disposition: continued stay on PCU, but possible dc to home tomorrow Admission and Anticipated Discharge Date Admission Date: July 04, 2023 Subjective Overall feeling much improved. Reports decrease in swelling of her lower extremities. Denies any significant shortness of breath, chest pain, or palpitations. Review of Systems Review of Systems: Per subject Physical Exam Physical Exam: General: Well-appearing, NAD Cardiovascular: Regular rate, irregularly irregular rhythm, no M/R/G Pulmonary: CTAB, no W/R/R Extremities: Moving all extremities, + bilateral pitting edema Integumentary: No suspicious rash or lesion on exposed skin Neurologic: AAOx3, no focal deficits Psychiatric: Appropriate mood/affect Results & Data Results & Data Vital Signs (Past 12 Hours) Vital Signs Temp Pulse Pulse Resp BP Pulse Ox O2 Del Method 07/07/23 12:32 81 07/07/23 11:06 36.7 C 85 19 153/79 H 95 Room Air 07/07/23 04:10 36.5 C 85 17 132/84 94 Room Air Laboratory Results Unremarkable CBC, BMP, magnesium PG Care Time/CCT Total # of Minutes Spent Total Time Spent with Patient: Total time spent is greater than 50% in coordination of care (as documented) at patient's floor/unit and/or counseling patient: Coding Level of Care Code 26290 SUB INP/OBS CARE 350MIN Diagnoses Atrial fibrillation with RVR I48.91 (HFpEF) heart failure with preserved ejection fraction I50.30 Cellulitis of leg, left L03.116 Ulcerative colitis with complication, unspecified location K51.919 Ulcerative colitis location: unspecified ulcerative colitis location Digestive disease complication type: unspecified complication Primary hypertension I10 Hypertension type: primary hypertension (4) Ulcerative colitis Ulcerative colitis location: unspecified ulcerative colitis location Digestive disease complication type: unspecified complication Qualified Code(s): K51.919 - Ulcerative colitis, unspecified with unspecified complications (5) HTN (hypertension) Hypertension type: primary hypertension Qualified Code(s): I10 - Essential (primary) hypertension
--- NOTE | 2023-07-08 09:30 | Discharge Summary ---
Date of Service July 08, 2023 Admission HPI Per Admitting Provider Blanca Mathews is a 87-year-old female with past medical history of A-fib on diltiazem and anticoagulated with apixaban, ulcerative colitis without recent bleeding, and hypertension well-controlled at home on diltiazem who presents with A-fib with RVR/rates in the 120/130s. She was placed on a diltiazem drip in the ER and given elevated BNP and some pulmonary congestion was given Lasix 20 mg and IV.? Rate related changes with swelling, right infrahilar opacity is noted on x-ray from which pneumonia is not excluded however patient denies fever, chills, cough, sputum production. Rate is gradually improving on Cardi zem. No chest pain, troponin is normal. No signs of ACS/ischemia. Blanca is seen at the bedside. She reports that her heart rate has been fast and she was sent to the ER for a fast heart rate and some foot swelling from her primary care doctor. She reports she does not have palpitations has had no chest pain or chest pressure. No difficulty breathing and denies orthopnea although notes some occasional chest heaviness this is not a pressure or pain and does not associate with diaphoresis/dyspnea. She is compliant with her anticoagulation. She notes that she does however have ulcerative colitis, and unfortunately has had a flare in the last week with increased loose bowel movements and some intermittent bright red blood in the toilet. No lightheadedness dizziness or syncope. She reports her energy efficiency engineer called in a prednisone course for her but she has not been able to pick this up. Denies abdominal pain. No other bleeding. DVT prophylaxis: SCDs Disposition: PCU CODE STATUS: Full code Diet: Heart healthy Admission Exam Per Admitting Provider General: A&Ox3. NAD. Cooperative. HEENT: Atraumatic, normocephalic. Pulm: CTAB A&P. -wheezes, -rales, -rhonchi. Symmetrical chest rise. No increased work of breathing. No respiratory distress. Cardiac: irir, +SM. Radial pulses intact and symmetrical. Abdominal: Nontender, nondistended, soft. BS present. Ext: +LE pitting edema bilat 2+, mild bilat symmetrical erythema. Principal Diagnosis Atrial fibrillation with RVR, heart failure with preserved ejection fraction, cellulitis of left leg, ulcerative colitis flare Discharge Exam General: Well-appearing, NAD Cardiovascular: Regular rate, irregularly irregular rhythm, no M/R/G Pulmonary: CTAB, no W/R/R Extremities: Moving all extremities, + bilateral pitting edema Integumentary: Minimal erythema LLE Neurologic: AAOx3, no focal deficits Psychiatric: Appropriate mood/affect Discharge Data Allergies Allergy/AdvReac Type Severity Reaction Status Date / Time NSAIDS (Non-Steroidal Allergy Severe "TOLD NOT Verified 07/04/23 14:00 Anti-Inflamma TO TAKE" ? R/T ABNORMAL WBC IN sulfasalazine Allergy Severe WBC Verified 07/04/23 14:00 [From Azulfidine] ABNORMALITY albuterol Allergy Intermediate DYSPNEA Verified 07/04/23 14:00 aspirin Allergy Intermediate "TOLD NOT Verified 07/04/23 14:00 TO TAKE" ? R/T ABNORMAL WBC IN bacitracin Allergy Intermediate RED AND Verified 07/04/23 14:00 [From Neosporin INFLAMMATION ([id number])] AT SITE ciclesonide [From Omnaris] Allergy Intermediate MUSCLE Verified 07/04/23 14:00 CRAMPS egg Allergy Intermediate HIVES IF Verified 07/04/23 14:00 EAT TOO MANY fish derived Allergy Intermediate SNEEZING, Verified 07/04/23 14:00 RUNNING NOSE, VOICE LOSS flunisolide [From Aerobid] Allergy Intermediate COUGH/SOB Verified 07/04/23 14:00 hydrochlorothiazide Allergy Intermediate MUSCLE Verified 07/04/23 14:00 [From Maxzide] CRAMPS Iodinated Contrast Media Allergy Intermediate Dizziness Verified 07/04/23 14:00 [Iodinated Contrast- Oral and IV Dye] iodine Allergy Intermediate Wheezing Verified 07/04/23 14:00 ipratropium Allergy Intermediate COUGH, Verified 07/04/23 14:00 "TIGHTNESS" mesalamine Allergy Intermediate HIVES Verified 07/04/23 14:00 neomycin Allergy Intermediate RED AND Verified 07/04/23 14:00 [From Neosporin INFLAMMATION ([id number])] AT SITE Penicillins Allergy Intermediate Hives Verified 07/04/23 14:00 pirbuterol Allergy Intermediate SOB Verified 07/04/23 14:00 [From Maxair Autohaler] polymyxin B Allergy Intermediate RED AND Verified 07/04/23 14:00 [From Neosporin INFLAMMATION ([id number])] AT SITE povidone-iodine Allergy Intermediate Wheezing Verified 07/04/23 14:00 [From Betadine] prednisone Allergy Intermediate MUSCLE Verified 07/04/23 14:00 CRAMPS senna Allergy Intermediate "X-PREP" Verified 07/04/23 14:00 WHEEZING, VOMITING triamcinolone [From Azmacort] Allergy Intermediate SOB Verified 07/04/23 14:00 triamterene [From Maxzide] Allergy Intermediate MUSCLE Verified 07/04/23 14:00 CRAMPS turkey Allergy Intermediate DYSPEPSIA Verified 07/04/23 14:00 zileuton [From Zyflo] Allergy Intermediate INCREASED Verified 07/04/23 14:00 PULSE codeine Allergy Mild RASH Verified 07/04/23 14:00 furosemide [From Lasix] Allergy Mild HEADACHE Verified 07/04/23 14:00 glucosamine Allergy Mild Rash Verified 07/04/23 14:00 hydrocodone Allergy Mild RASH Verified 07/04/23 14:00 oxtriphylline Allergy Mild SOB, Verified 07/04/23 14:00 VOMITING theophylline Allergy Mild SOB, Verified 07/04/23 14:00 VOMITING vitamin E (d-alpha Allergy Mild Rash Verified 07/04/23 14:00 tocopherol) Xanthines Allergy Mild SOB, Verified 07/04/23 14:00 Vomiting soap [From Betadine] Allergy Unknown Wheezing Verified 07/04/23 14:00 soybean AdvReac Intermediate "MOUTH Verified 07/04/23 14:00 ISSUES" loperamide AdvReac Mild Vomiting Verified 07/04/23 14:00 milk AdvReac Mild DIARRHEA,VO Verified 07/04/23 14:00 MITING perfume AdvReac Mild WHEEZY Verified 07/04/23 14:00 tomato AdvReac Mild DIARRHEA Verified 07/04/23 14:00 pseudoephedrine AdvReac Unknown TACHYCARDIA Verified 07/04/23 14:00 ,VOMITING salmeterol AdvReac Unknown DECREASED Verified 07/04/23 14:00 "LUNG POWER" zafirlukast AdvReac Unknown SLUGGISHNESS, Verified 07/04/23 14:00 EXTREME LOSS OF APPETITE salicylates AdvReac CAUSED Verified 07/04/23 14:00 POLYPS METALS Allergy Mild Rash Uncoded 07/04/23 14:00 BABY DAVE POWDER AdvReac Mild Rash Uncoded 07/04/23 14:00 Consultations 07/04/23 18:10 ED Decision to Admit Stat 07/08/23 09:29 Consult TANGELA fuel dock attendant Routine Hospital Course (1) Atrial fibrillation with RVR: P/w HAZEL with rates in 120s at rest on admission. Pt is unaware of her afib but developed LE edema, elevated BNP, and fatigue recently. No angina She was recently started on diltiazem 180 mg daily by Cardiology the end of 04/2023 Placed on diltiazem gtt in the ER, but since started on increased dose of diltiazem po to 240mg and weaned off gtt - continue with increased dose of 240mg daily Continue Eliquis -no further GI bleeding (minor bleeding but stable hgb prior to admission) Cardiology is considering a cardioversion as an outpt -f/u outpt (2) (HFpEF) heart failure with preserved ejection fraction: Acute on chronic HFpEF--P/w worsening fatigue and 3+ pitting LE edema over the last 1-2 weeks. BNP elevated, CXR with pulm vascular congestion She does admit to indiscretion with eating a lot of ham prior to edema worsening Last echo with EF 60-65%, LVH in 03/2023 Her rapid Afib is also playing a role in her CHF [place] much improved already after 1 dose of IV lasix in ER--> but remained hypervolemic Chlorthalidone discontinued in favor of po Bumex (had previous headaches with po lasix) Gave Bumex 0.5mg IV x 1 on 07/04 and then started Bumex 1mg po qAM Improving slowly but remains hypervolemic--> increased Bumex to 1mg po bid On discharge, continue with Bumex 1mg daily CXR with small perihilar opacity although no other signs of pneumonia, consider CXR outpatient for resolution Low sodium and fluid restricted diet (3) Cellulitis of leg, left: left leg with erythema, tenderness, but no fevers/chills or leukocytosis started on Daptomycin (given multiple allergies) and already with significant improvement-no further tenderness, erythema almost gone Daptomycin d/c'd as it caused severe burning in her IV---> she has severe allergy to PCN and has seen Director Of Emergency Nursing for testing for this. Hesitate to give cephalosporin. She reports multiple GI sensitivities to other medications including clindamycin Started doxycycline 100mg po bid and will continue for 6 days through 07/11/23 Advised better foot care at home given macerated skin between toes-she cannot physically reach her feet to wash/dry them and lives alone at home (4) Ulcerative colitis: Patient with a flare in the last week with loose stools and intermittent small amounts of hematochezia. Hemoglobin is stable at 12.8, no bleeding here Continue Eliquis and monitor for bleeding Continue prednisone 40 mg daily and patient should continue follow-up with GI-->prednisone taper had been prescribed to her, to start on discharge prednisone 30mg daily x 2 weeks, then 20mg daily x 2 weeks, then 10mg daily x 2 weeks, then 5mg daily x 2 weeks, then STOP. She has a GI f/u appt on 08/20/23 Continue home balsalazide (5) HTN (hypertension): BPs controlled continue increased dose of diltiazem continue diuresis with bumex Stopped home chlorthalidone in favor of loop diuretic Plan Patient requests portal message in addition to phone call to arrange outpatient f/u appt Total Time Total Time Spent Total Time Spent (In Minutes): 35 Total Time Includes: Examination of the Patient, Discharge Planning and Medication Reconciliation Discharge Plan Discharge Items Patient Disposition: Home - Self-Care Reason For Visit: AFIB RVR, UC FLARE Discharge Diagnosis: Atrial fibrillation without RVR, heart failure with preserved ejection fraction, cellulitis of the left leg, ulcerative colitis flare Activity: Resume your previous activity Non-emergency contact: Primary Care Provider and Hot Sealing Machine Operator Call non-emergency contact if: you have any medication questions and your symptoms worsen Follow-up/Referrals: Paola Israel MD [Primary Care Provider] - Diet: Low Sodium (2gm) Fluids: 1800ml (7 cups) Addtl Attending Provider Instructions: You were admitted with a couple of different diagnoses including atrial fibrillation with a rapid heart rate, heart failure with too much fluid in the lungs and legs, left leg cellulitis (infection), and ulcerative colitis flare. The diltiazem was increased to 240 mg daily. You were started on a diuretic called Bumex (bumetanide). This is given to you 2 times per day while you are in the hospital to remove excess fluid. You can continue with this on a daily basis upon leaving the hospital. Because we started the Bumex, you should stop the chlorthalidone. You will be discharged to complete a course of antibioticsthis is doxycycline which she will continue taking 2 times a day through 07/10. You should continue with the prednisone taper as prescribed by your energy efficiency engineer. Please keep follow-up with your assembler small products and ensure you make a follow-up appointment with your primary care provider. Pending Studies at Discharge: No Stand-Alone Forms: My [facility] Medications and DC Order Prescriptions: New doxycycline hyclate 100 mg Capsule 100 mg PO BID Qty: 7 0RF diltiazem HCl 240 mg Capsule,Extended Release 24hr 240 mg PO DAILY Qty: 30 0RF bumetanide 1 mg Tablet 1 mg PO DAILY Qty: 30 0RF Continued Biofreeze (menthol) 4 % gel 1 applic topical TID PRN (Reason: pain or itching) Qty: 89 0RF prednisone 20 mg tablet 40 mg PO .COMPLEX PRN (Reason: asthma) Qty: 30 3RF Rx Instructions: 2 tabs PO QAM in case of asthma attack Eliquis 5 mg tablet 5 mg PO BID Qty: 180 3RF chlorpheniramine maleate 4 mg Tablet 4 mg PO Q6H PRN (Reason: Allergy Symptoms) clindamycin HCl 300 mg Capsule 600 mg PO UD PRN (Reason: BEFORE DENTAL VISITS) flaxseed oil 1,000 mg Capsule 100 mg PO BID triamcinolone acetonide 0.025 % Cream 1 applic TOPICAL BID PRN (Reason: Rash) balsalazide 750 mg Capsule 2,250 mg PO TID ketoconazole 2 % Cream 1 applic TOPICAL DAILY PRN (Reason: NEEDED RING WORM) Multivitamin 50 Plus Tablet 1 tab PO QAM Saline Nasal 0.65 % Aerosol,[place] 1 spray INTRANASAL BID PRN (Reason: Congestion) lutein 20 mg Capsule 20 mg PO QAM Calcium 600 + D(3) 600 mg calcium- 200 unit Capsule 1 cap PO BID potassium gluconate 595 mg (99 mg) Tablet 595 mg PO BID cholecalciferol (vitamin D3) [Vitamin D3] 2,000 unit Capsule 2,000 unit PO BID Zyrtec 10 mg Capsule 10 mg PO HS PreserVision AREDS-2 [phone]-mg Capsule 1 tab PO BID acetaminophen [Tylenol] 325 mg Tablet 325 mg PO QID PRN (Reason: Pain) magnesium oxide 400 mg magnesium capsule 400 mg PO DAILY PRN (Reason: muscle cramps) prednisone 10 mg tablet 0 mg PO UD Rx Instructions: Hasn't picked up, ready at pharmacy. 3 tabs po for 2 weeks, reduce by 1 tablet every 2 weeks, and end on half tab daily for 2 weeks Discontinued chlorthalidone 25 mg tablet See Rx Instructions .ROUTE .COMPLEX Qty: 45 3RF Dose Instruction: TAKE ONE-HALF TABLET BY MOUTH DAILY Rx Instructions: TAKE ONE-HALF TABLET BY MOUTH DAILY diltiazem HCl 180 mg capsule,extended release 24hr 180 mg PO DAILY Qty: 90 3RF Discharge Orders: Discharge Order- CHF (Routine); Ordered 07/08/23 Ordered By: Celia Salas Admission Data Admit Date/Time: 07/04/23 19:03 Attending Provider: Celia Salas Admit Provider: Emanuel Ramirez Primary Care Provider: Paola Israel Other Providers: Emanuel Ramirez Coding Level of Care Code 00757 INP/OBS DISCH >30 MIN Diagnoses Atrial fibrillation with RVR I48.91 (HFpEF) heart failure with preserved ejection fraction I50.30 Cellulitis of leg, left L03.116 Ulcerative colitis with complication, unspecified location K51.919 Ulcerative colitis location: unspecified ulcerative colitis location Digestive disease complication type: unspecified complication Primary hypertension I10 Hypertension type: primary hypertension
== END 2023-07-08 12:29 | disposition home or self-care (01) | DRG 308 ==
LOC: SUATTDRO → ED 15:26 → SUATTDRO 19:03 → EDINP 19:03 → 2E 07-05 16:10
DX: K51.911 Ulcerative colitis, unspecified with rectal bleeding; Z88.2 Allergy status to sulfonamides; Z88.0 Allergy status to penicillin; Z88.1 Allergy status to other antibiotic agents; Z88.8 Allergy status to other drugs, medicaments and biological substances; Z88.5 Allergy status to narcotic agent; I11.0 Hypertensive heart disease with heart failure; I50.33 Acute on chronic diastolic (congestive) heart failure; Z79.01 Long term (current) use of anticoagulants; L03.116 Cellulitis of left lower limb; I48.91 Unspecified atrial fibrillation; Z82.49 Family history of ischemic heart disease and other diseases of the circulatory system; Z79.899 Other long term (current) drug therapy; Z88.6 Allergy status to analgesic agent; Z79.52 Long term (current) use of systemic steroids